=== PATIENT | female | born 1960 | race Asian ===

== ENCOUNTER 2019-03-28 23:10 | Emergency (ER) | payer SELFPAY ==
[~2019-03-28] VITALS: Ht 160 cm; Wt 66.7 kg
[2019-03-28 23:31] VITALS: BP_SYST 114
--- NOTE | 2019-03-29 02:40 | NUR ---
Called pt in, no answer
--- NOTE | 2019-03-29 02:40 | NUR ---
Patient left without being seen. No further treatmen given. ER MD aware
== END 2019-03-29 02:40 | disposition left against medical advice (07) ==
LOC: SED 23:10
DX: M25.562 Pain in left knee (principal); Z53.21 Procedure and treatment not carried out due to patient leaving prior to being seen by health care provider
CPT/HCPCS: 73564